=== PATIENT | female | born 1995 | race Two or more races ===

== ENCOUNTER 2016-06-09 05:27 | Inpatient (IN) | payer MEDICAID ==
[~2016-06-09] VITALS: Ht 160 cm; Wt 80.0 kg
[2016-06-09] MEDS ORDERED: OXYTOCIN 30U/ 0.9% NaCL 500ML 500 ML IV PRN (05:40)
[2016-06-09] MEDS ORDERED: OXYTOCIN 30U/ 0.9% NaCL 500ML 500 ML IV ONE (05:40)
[2016-06-09] MEDS ORDERED: AMPICILLIN 2 GM in SODIUM CHLORIDE 0.9% 100 ML IVPB STA (05:40)
[2016-06-09] MEDS ORDERED: CALCIUM CARBONATE 500 MG TAB.CHEW PO PRN (06:00)
[2016-06-09] MEDS ORDERED: FENTANYL PF 100 MCG/2ML IV PRN (06:00)
[2016-06-09] MEDS ORDERED: ONDANSETRON 2MG/ML, 2ML IVPush PRN (06:00)
[2016-06-09] MEDS: LACTATED RINGERS 1,000 ML IV SCH ×2 (06:15→18:45)
[2016-06-09] MEDS ORDERED: MISOPROSTOL 25 MCG TABLET ONE ×3 (06:33→15:57)
[2016-06-09] MEDS ORDERED: NEWBORN KIT ONE (06:33)
[2016-06-09] MEDS: MISOPROSTOL 25 MCG TABLET VG PRN ×3 (06:37→16:03)
[2016-06-09] MEDS: AMPICILLIN 1 GM in SODIUM CHLORIDE 0.9% 50 ML IVPB SCH ×3 (10:51→18:43)
[2016-06-09] MEDS ORDERED: DIPH,PERTUSS(ACELL),TET VAC/PF NC IM-VACC ONE ×2 (12:27→13:00)
[2016-06-09] MEDS ORDERED: MISOPROSTOL 200 MCG TABLET ONE (16:08)
[2016-06-09] MEDS ORDERED: LIDOCAINE 1%, 20ML ONE ×2 (16:08→22:25)
[2016-06-09] MEDS ORDERED: OXYTOCIN 30U/ 0.9% NaCL 500ML 500 ML ONE (16:08)
[2016-06-09] MEDS ORDERED: PENICILLIN GK 5,000,000 UNITS in DEXTROSE 5% 100 ML IVPB ONE (20:00)
[2016-06-09] MEDS ORDERED: FENTANYL PF 100 MCG/2ML ONE ×2 (20:05→21:30)
[2016-06-09] MEDS ORDERED: ONDANSETRON 2MG/ML, 2ML ONE (20:05)
[2016-06-09] MEDS: D5%-LACTATED RINGERS 1,000 ML IV SCH (20:18)
[2016-06-09] MEDS: FENTANYL PF 100 MCG/2ML IVPush PRN ×2 (20:35→21:43)
[2016-06-09] MEDS ORDERED: FENTANYL/BUPIV./NS/PF 250 ML EPIDCONT ONE ×2 (22:07→22:25)
[2016-06-09] MEDS ORDERED: LIDOCAINE/PF 1%-EPI 1:200K, 30 ML ONE (22:25)
[2016-06-09] MEDS ORDERED: BUPIVACAINE 0.25% ONE (22:25)
[2016-06-09] MEDS ORDERED: LACTATED RINGERS 1,000 ML IV SCH (22:59)
[2016-06-09] MEDS ORDERED: FENTANYL/BUPIV./NS/PF 250 ML EPIDCONT SCH (22:59)
[2016-06-09] MEDS ORDERED: LACTATED RINGERS 1,000 ML IVBOLUS PRN (23:00)
[2016-06-10] MEDS ORDERED: PENICILLIN GK 2,500,000 UNITS in DEXTROSE 5% 100 ML IVPB SCH
[2016-06-10] MEDS ORDERED: METOCLOPRAMIDE 5 MG/ML, 2ML ONE ×2 (00:39→04:01)
[2016-06-10] MEDS ORDERED: METOCLOPRAMIDE 5 MG/ML, 2ML IVPush PRN (01:00)
[2016-06-10] MEDS: TERBUTALINE 1 MG/ML, 1ML IVPush PRN ×2 (01:25→03:27)
[2016-06-10] MEDS ORDERED: LACTATED RINGERS 1,000 ML INTUTE PRN (01:30)
[2016-06-10] MEDS: LACTATED RINGERS 1,000 ML IV SCH ×5 (01:33→18:30)
[2016-06-10] MEDS ORDERED: LACTATED RINGERS 1,000 ML INTUTE SCH (02:00)
[2016-06-10] MEDS: D5%-LACTATED RINGERS 1,000 ML IV SCH (02:54)
[2016-06-10] MEDS ORDERED: SODIUM CITRATE/CITRIC ACID 30 ML UDC ONE (04:01)
[2016-06-10] MEDS ORDERED: SODIUM CITRATE/CITRIC ACID 30 ML UDC PO ONE (04:05)
[2016-06-10] MEDS ORDERED: LIDOCAINE/MPF 2%-EPI 1:200K, 20 ML ONE ×2 (04:09→04:10)
[2016-06-10] MEDS ORDERED: CEFAZOLIN 1,000 MG ONE (04:10)
[2016-06-10] MEDS ORDERED: SODIUM BICARBONATE 4.2%, 5ML ONE (04:10)
[2016-06-10] MEDS ORDERED: ONDANSETRON 2MG/ML, 2ML ONE (04:10)
[2016-06-10] MEDS ORDERED: KETOROLAC 30 MG/1 ML ONE (04:10)
[2016-06-10] MEDS: OXYTOCIN 30U/ 0.9% NaCL 500ML 500 ML IV SCH ×2 (05:17→15:17)
[2016-06-10] MEDS ORDERED: MEPERIDINE/PF 25MG/0.5ML IVPush PRN (05:30)
[2016-06-10] MEDS: KETOROLAC 30 MG/1 ML IV SCH ×3 (05:30→18:44)
[2016-06-10] MEDS ORDERED: MISOPROSTOL 200 MCG TABLET PR PRN (05:30)
[2016-06-10] MEDS ORDERED: OXYcodone 5 MG/5 ML ORAL.SOL UDC PO PRN (05:30)
[2016-06-10] MEDS ORDERED: ONDANSETRON 2MG/ML, 2ML IVPush PRN (05:30)
[2016-06-10] MEDS ORDERED: DIPH,PERTUSS(ACELL),TET VAC/PF NC IM-VACC PRN (05:30)
[2016-06-10] MEDS ORDERED: RHOGAM FROM BLOOD BANK 1 NOTE EA IM/IV ONE (05:30)
[2016-06-10] MEDS ORDERED: ONDANSETRON 2MG/ML, 2ML IV PRN (05:30)
[2016-06-10] MEDS ORDERED: MEASLES,MUMPS&RUBELLA VACC/PF 0.5 ML SQ-VACC PRN (05:30)
[2016-06-10] MEDS ORDERED: MEPERIDINE/PF 50 MG/ML IM PRN (05:30)
[2016-06-10] MEDS ORDERED: morphine SULFATE 10 MG/ML, 1ML ONE (06:41)
[2016-06-10] MEDS ORDERED: FENTANYL PF 100 MCG/2ML ONE (06:42)
[2016-06-10] MEDS: FENTANYL PF 100 MCG/2ML IV PRN ×2 (06:51→07:14)
[2016-06-10] MEDS: morphine SULFATE 10 MG/ML, 1ML IV PRN ×2 (06:52→07:15)
[2016-06-10 08:06] VITALS: BP 111/73
[2016-06-10] MEDS: PRENATAL VIT/IRON/FA 1 EACH TABLET PO SCH (09:13)
[2016-06-10] MEDS: HYDROcodone/APAP 5/325 TABLET PO PRN ×4 (09:13→23:05)
[2016-06-10] MEDS: DOCUSATE 100 MG CAPSULE PO PRN ×2 (09:14→23:04)
[2016-06-10 11:35] VITALS: BP 119/76
[2016-06-10 12:16] LABS: DIFF TOTAL CELLS COUNTED 100 CELL DIFF
[2016-06-10 13:31] LABS: ANISOCYTOSIS 1+; HYPOCHROMIA 1+; MICROCYTOSIS 1+; VERIFY COUNTS? YES
[2016-06-10 13:32] LABS: POLYCHROMASIA 1+
[2016-06-10 15:49] VITALS: BP 108/67
[2016-06-10 19:36] VITALS: BP 114/74
[2016-06-10 23:53] VITALS: BP 104/58
[2016-06-11] MEDS: OXYTOCIN 30U/ 0.9% NaCL 500ML 500 ML IV SCH ×2 (01:17→02:31)
[2016-06-11] MEDS: KETOROLAC 30 MG/1 ML IV SCH (02:27)
[2016-06-11] MEDS: HYDROcodone/APAP 5/325 TABLET PO PRN ×4 (03:49→18:10)
[2016-06-11 03:54] VITALS: BP 119/74
[2016-06-11] MEDS: LACTATED RINGERS 1,000 ML IV SCH ×2 (05:17→13:17)
[2016-06-11 07:16] VITALS: BP 110/62
[2016-06-11] MEDS: FERROUS GLUCONATE 324 MG TABLET PO SCH ×2 (07:59→18:10)
[2016-06-11] MEDS: IBUPROFEN 600 MG TABLET PO PRN ×3 (07:59→21:10)
[2016-06-11] MEDS: DOCUSATE 100 MG CAPSULE PO PRN ×2 (07:59→21:10)
[2016-06-11] MEDS: PRENATAL VIT/IRON/FA 1 EACH TABLET PO SCH (09:00)
[2016-06-11 12:25] VITALS: BP 123/73
[2016-06-11 16:12] VITALS: BP 111/68
[2016-06-11] MEDS: ONDANSETRON ODT 4 MG PO PRN (17:15)
[2016-06-11 19:15] VITALS: BP 122/76
[2016-06-11 20:10] VITALS: BP 119/73
[2016-06-12] VITALS: BP 120/78
[2016-06-12] MEDS: OXYcodone IR 5MG TABLET PO PRN ×2 (02:54→08:58)
[2016-06-12] MEDS: IBUPROFEN 600 MG TABLET PO PRN (04:34)
[2016-06-12 04:36] VITALS: BP 105/57
[2016-06-12 08:40] VITALS: BP 115/72
[2016-06-12] MEDS: PRENATAL VIT/IRON/FA 1 EACH TABLET PO SCH (08:41)
[2016-06-12] MEDS: DOCUSATE 100 MG CAPSULE PO PRN (08:41)
[2016-06-12] MEDS: FERROUS GLUCONATE 324 MG TABLET PO SCH (08:41)
[2016-06-12] MEDS: ONDANSETRON ODT 4 MG PO PRN (09:00)
[2016-06-12] MEDS ORDERED: HYDR-3240 PO (12:40)
[2016-06-12] MEDS ORDERED: IBUP-1222 PO (12:41)
[2016-06-12] MEDS ORDERED: FERR325T20 PO (12:42)
== END 2016-06-12 14:00 | disposition home or self-care (01) | DRG 765 ==
LOC: LDIP 05:27 → 2NW 06-10 08:04
PROVIDERS: ADMIT Specialist; ATTEND Specialist
PROC: 10D00Z1 Extraction of Products of Conception, Low, Open Approach (ICD-10-PCS; principal; 2016-06-09)
DX: O76 Abnormality in fetal heart rate and rhythm complicating labor and delivery (principal); O36.5930 Maternal care for other known or suspected poor fetal growth, third trimester, not applicable or unspecified; Z37.0 Single live birth; Z3A.40 40 weeks gestation of pregnancy; O90.81 Anemia of the puerperium; D50.9 Iron deficiency anemia, unspecified
CPT/HCPCS: 36415; 85014; 85018; 85025; 86850; 86900; 90715; J0290; J0690; J1885; J2405; J2540; J3010; J3490; Q0162; J2270; J2590; J2765; J3105; J7120; J7121